=== PATIENT | male | born 1975 | race Caucasian/White ===

== ENCOUNTER 2019-10-28 22:37 | Emergency (ER) | payer MEDICAID ==
[~2019-10-28] VITALS: Ht 188 cm; Wt 98.5 kg
[2019-10-28 22:42] VITALS: BP 131/86
--- NOTE | 2019-10-28 23:53 | NUR ---
Pt states he takes anywhere from 2-5, sometimes up to 10 hydrocodone tablets for chronic back pain.
[2019-10-29] MEDS ORDERED: METHYLNALTREXONE 12 MG/0.6 ML SYR SQ ONE ×2 (00:01)
== END 2019-10-29 02:15 | disposition home or self-care (01) ==
LOC: ED 10-29 00:29
DX: K59.00 Constipation, unspecified (principal); R10.12 Left upper quadrant pain; R10.9 Unspecified abdominal pain
CPT/HCPCS: 74021; 96372; 99284